=== PATIENT | female | born 1995 | race Caucasian/White ===

== ENCOUNTER → 2021-09-15 10:16 | Outpatient (CLI) | payer OTHER, SELFPAY ==
[2021-09-17 21:56] LABS: AFP Value 52.1 ng/mL (.); Gest Age on Col Date 17.7 weeks (.); Gestational Age Ultrasound (.); Insulin Dep Diabetes No (.); OSBR Risk 1IN 5576 (.); Results Report (.); Test Results *Screen Negative* (.)
== END ==
PROVIDERS: Referring Provider Obstetrics & Gynecology; Visit Provider Obstetrics & Gynecology
DX: Z34.82 Encounter for supervision of other normal pregnancy, second trimester (principal); Z3A.16 16 weeks gestation of pregnancy
CPT/HCPCS: 36415; 82105

== ENCOUNTER → 2021-10-08 07:12 | Outpatient (CLI) | payer OTHER, SELFPAY ==
--- NOTE | 2021-10-08 07:13 | DI.US.S_ITS ---
PROCEDURE: US OB >= 14 WEEKS FETUS INDICATIONS: ANATOMY OUTSIDE/PRIOR DATING DATA: LMP-based estimated date of delivery (ADAM): 02/22/2022. First dating scan (date and location): 09/15/2021 Estimated date of delivery (ADAM) from first dating scan: 02/21/2022. TECHNIQUE: Real-time scanning was performed of the fetus, with image documentation and biometric measurements. Endovaginal scanning: No COMPARISON: [facility], , OB >= 14 WEEKS FETUS, 09/15/2021, 10:10. FINDINGS: General: A single living intrauterine gestation is present. Presentation: Vertex. Placenta: Placental position is posterior , without previa. Amniotic fluid index: 5.2 cm, normal range is 5-24 cm. heart rate: 139 beats per minute. Maternal cervical canal: 5.2 cm long. Normal lower limit is 2.5 cm. biometrics: Biparietal diameter: 46 mm; 20 weeks 0 days Head circumference: 179 mm; 20 weeks 2 days Abdominal circumference: 151 mm; 20 weeks 2 days Femur length: 35 mm; 21 weeks 0 days Clinically estimated gestational age: 20 weeks 4 days Composite gestational age from present scan: 20 weeks 3 days Estimated weight and percentile: 364 g, which is at the 46th percentile for gestational age Anatomic survey: Neuro: Ventricles are non-dilated at less than 10 mm. Cisterna magna is normal at 3-11 mm. Cerebellum is normal in size and morphology. Nuchal skin fold: Normal at less than 6 mm between 14-21 weeks gestational age. Face: Nose and lips, facial profile are normal. Spine: No evidence for spina bifida. Heart: 4-chambered heart is present, with normal ventricular outflow tracts. Diaphragm: Diaphragm is intact. Stomach: Left-sided stomach is present. Kidneys: No hydronephrosis. Normal is less than 5 mm in 2nd trimester, less than 7 mm in 3rd trimester. Cord: 3-vessel cord has orthotopic insertion. Bladder: Normal in size. Extremities: All 4 extremities identified. IMPRESSION: 1. Single living intrauterine gestation. 2. Amniotic fluid index is at lower limits of normal. 3. No anomalies identified. We strive to produce accurate, complete, and clear reports of imaging services. To assist us in improving patient care, this report was composed using standard report templates and voice recognition software. Therefore, it may contain abnormal punctuation, insertions and/or omissions. Occasional wrong-word or sound-alike substitutions may occur. Though we review the report and make efforts to correct it, we do recommend that the report be read carefully in proper context to recognize any text inaccuracies. Dictated by: Uriah Qureshi M.D. on 10/08/2021 at 14:50 Approved by: Uriah Qureshi M.D. on 10/08/2021 at 16:38
== END ==
PROVIDERS: Referring Provider Obstetrics & Gynecology; Visit Provider Obstetrics & Gynecology
DX: Z34.82 Encounter for supervision of other normal pregnancy, second trimester (principal); Z3A.20 20 weeks gestation of pregnancy
CPT/HCPCS: 76811

== ENCOUNTER 2021-10-09 12:30 | Outpatient (CLI) | payer OTHER, SELFPAY ==
--- NOTE | 2021-10-09 18:42 | PM.OBTRLD ---
Visit Information Visit Information Date of evaluation: 10/09/21 Primary OB Provider: Isabella Gonzalez On-call OB Provider: Isabella Gonzalez Reason for Evaluation: Yes rupture of membranes Comments/Additional reasons for admission: Patient is a 26-year-old 2 para 0 at 20-,4/7 weeks gestation who had a 20 week ultrasound this week that showed the amniotic fluid volume at the lower limit of normal. Patient reports that she thinks she has been leaking fluid over the last week. She has to change her underwear at the end of the day. [facility] Medical History (Updated 09/18/21 @ 19:15 by Cary Groves) Acne Chicken pox (~1996) Irritable bowel syndrome (~2003) Missed UTI (urinary tract infection) Vaginitis Surgical History (Updated 09/18/21 @ 19:15 by Cary Groves) Anesthesia History of tonsillectomy (~2012) History of wisdom tooth extraction Family History (Updated 09/18/21 @ 19:15 by Cary Groves) Mother Hypertension Anxiety and depression Father Hypertension Grandfather Cancer Social History marital status: number of children: 0 household members: spouse lives independently: Yes housing: house pets and animals: Yes (cats - cleans litter box) 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 current occupational exposures/hazards: No special angela needs: No seatbelt use: always water heater temp set < 120 deg: Yes working smoke detector in home: Yes fire extinguisher in home: Yes carbon monox detector in home: Yes firearms in home: No do you feel safe at home: Yes Smoking Status: Never smoker second hand exposure: No alcohol intake: former substance use type: does not use, former substance user and marijuana during the past year weight has: remained stable well-balanced diet: daily or most days daily servings fruits/ve-4 caffeine: Yes (1 per day - limit 200mg) Type(s) of exercise: walking and regular exercise Exam Narrative Exam Narrative: Generally: A well-developed, well-nourished female, no acute distress Evaluation Evaluation Baseline heart rate: 140 Non-invasive Membranes Rupture Test: negative Diagnosis, Plan/Disposition Plan/Disposition Plan: Assessment: 26-year-old 2 para 0 at 20-,4/7 weeks gestation Negative AmniSure Amniotic fluid volume at lower limit of normal Plan: Discharged home Follow-up next week as scheduled OB Disposition: home
== END 2021-10-09 13:10 | disposition home or self-care (01) ==
LOC: LABOR 13:15 → OB 10-13 06:49
PROVIDERS: Referring Provider Obstetrics & Gynecology; Visit Provider Obstetrics & Gynecology
DX: Z03.71 Encounter for suspected problem with amniotic cavity and membrane ruled out (principal); Z3A.20 20 weeks gestation of pregnancy
CPT/HCPCS: 59050; 84112; G0378; G0379

== ENCOUNTER → 2021-11-16 11:05 | Outpatient (CLI) | payer OTHER, SELFPAY ==
[2021-11-16 13:36] LABS: Hematocrit 34.4 % (36-46); Hemoglobin 11.7 g/dL (12.0-16.0)
[2021-11-16 14:26] LABS: GTT (PREG) 1 Hour PP 50gm Dose 109 mg/dL (76-139)
== END ==
PROVIDERS: Referring Provider Obstetrics & Gynecology; Visit Provider Obstetrics & Gynecology
DX: Z34.82 Encounter for supervision of other normal pregnancy, second trimester (principal); Z3A.26 26 weeks gestation of pregnancy
CPT/HCPCS: 36415; 82950; 85014; 85018

== ENCOUNTER → 2022-01-15 11:47 | Outpatient (CLI) | payer OTHER, SELFPAY | PROVIDERS: Visit Provider Specialist | DX: Z34.83 Encounter for supervision of other normal pregnancy, third trimester (principal); Z3A.34 34 weeks gestation of pregnancy | CPT/HCPCS: 87086 ==

== ENCOUNTER → 2022-02-04 11:12 | Outpatient (CLI) | payer OTHER, SELFPAY ==
[2022-02-05 13:36] LABS: Strep Grp B PCR NEG for Grp B Strep
== END ==
PROVIDERS: Visit Provider Physician Assistant Medical
DX: Z34.83 Encounter for supervision of other normal pregnancy, third trimester (principal); Z3A.37 37 weeks gestation of pregnancy
CPT/HCPCS: 87653

== ENCOUNTER 2022-02-16 18:05 | Inpatient (IN) | payer OTHER, SELFPAY ==
[2022-02-16 19:52] LABS: Add Manual Diff / Slide Review NO; Basophils Absolute Auto 100 /uL (0-100); Basophils Percent Auto 0.7 % (0-2); Eosinophils Absolute Auto 100 /uL (0-450); Eosinophils Percent Auto 0.8 % (2-4); Hemoglobin 11.4 g/dL (12.0-16.0); Lymphocytes Absolute Auto 1600 /uL (1100-4500); Lymphocytes Percent Auto 17.3 % (25-40); Mean Corpuscular HGB Conc 34.5 % (30-36); Mean Corpuscular Hemoglobin 31.4 PG (26-34); Monocytes Absolute Auto 800 /uL (0-900); Monocytes Percent Auto 8.4 % (3-14); Neutrophils Absolute Auto 6800 /uL (1500-7000); Neutrophils Percent Auto 72.8 % (50-75); Platelet Count 189 X10^3/uL (150-400); Red Blood Cell Count 3.63 X10^6/uL (4.0-5.2); Red Cell Distribution Width 13.8 % (11.6-14.8); White Blood Cell Count 9.4 X10^3/uL (4.5-11.0)
[2022-02-16] MEDS: LACTATED RINGERS 1,000 ML 100 ML IV (20:42)
[2022-02-16] MEDS: miSOPROStoL 25 MCG TABLET VAG (21:00)
[2022-02-16 22:25] LABS: COVID19 -Nasal RAPID Negative (Negative)
[2022-02-17] MEDS: ZOLPIDEM 5 MG TABLET 10 MG PO (01:42)
[2022-02-17] MEDS: miSOPROStoL 25 MCG TABLET VAG ×2 (03:27→07:52)
[2022-02-17] MEDS: ONDANSETRON 4 MG/2 ML INJ IV (07:34)
[2022-02-17] MEDS: LACTATED RINGERS 1,000 ML 1000 ML IV (11:05)
--- NOTE | 2022-02-17 11:38 | P.HPOB_ITS ---
OB HPI Date/Time Date of admission: 02/17/22 Date Patient Seen: 02/17/22 Time Patient Seen: 08:50 History of Present Condition Chief complaint: observation of labor ADAM Calculator Estimated Delivery Date Method Current WG Current Estimate 02/22/22 LMP (Uncertain) 39w 2d Other Estimates 02/25/22 Ultrasound #1 38w 6d Estimated Gestational Age (weeks): 39+2 : 2 Para: 0 care: good care, initiated at week # (6), number of visits (12) and pounds weight gain (35) Dating criteria OB: LMP confirmed by 1st trimester US Ultrasounds: normal 1st trimester US Obstetrical complications: other (low amniotic fluid on anatomic survey, normal LINDSEY at 25,27 and 29 weeks) Medical complications OB: none Indications Indication for induction OB: other (Elective) Preadmission Labs Last OB Lab Results: Blood Type A Positive 02/16/22 19:45 Antibody Screen Negative 02/16/22 19:45 Hematocrit 33.0 % (36-46) L 02/16/22 19:45 Hemoglobin 11.4 g/dL (12.0-16.0) L 02/16/22 19:45 Glucose 1 Hour 109 mg/dL (76-139) 11/16/21 12:14 Group B Streptococcus (PCR) Neg for grp b strep 02/04/22 11:12 -: Chlamydia screen: negative, Gonorrhea screen: negative and Urine: negative Genetic Screens: Cell-free DNA: Normal and Alpha-fetoprotein: Normal External Labs -: HBsAG: negative, HIV: negative, RPR/VDLR: negative, Chlamydia screen: negative, Gonorrhea screen: negative and Urine: negative -: Rubella: immune and Varicella: immune HCAB: negative PAP: Normal Prior (ies) Past Pregnancies Del. Date GA/Weeks Labor Lgth Wt Sex Route Outcome Anesthesia Place Delv Breastfeed Preg Comp Name 03/11/21 13 spontaneous none Delivery Date: 03/11/21 Last Updated by: Pooja Zuniga RJennifer No heart beat at 10 weeks had only grown to7wks Evaluation Evaluation Baseline heart rate: 125 Variability: Moderate (11-25) monitor accelerations: Present Monitor Decelerations: Absent Contraction Frequency (minutes): 5 Uterine Contraction Intensity: Mild Status: Category l Dilation (cm): 2 Effacement (%): 80 station: -1 Position of cervix: mid Consistency: soft PFSH Medical History (Updated 09/18/21 @ 19:15 by Cary Groves) Acne Chicken pox (~1996) Irritable bowel syndrome (~2003) Missed UTI (urinary tract infection) Vaginitis Surgical History (Updated 09/18/21 @ 19:15 by Cary Groves) Anesthesia History of tonsillectomy (~2012) History of wisdom tooth extraction Family History (Updated 09/18/21 @ 19:15 by Cary Groves) Mother Hypertension Anxiety and depression Father Hypertension Grandfather Cancer Social History marital status: number of children: 0 household members: spouse lives independently: Yes housing: house pets and animals: Yes (cats - cleans litter box) education level: college occupational status: employed current occupational exposures/hazards: No special angela needs: No seatbelt use: always water heater temp set < 120 deg: Yes working smoke detector in home: Yes fire extinguisher in home: Yes carbon monox detector in home: Yes firearms in home: No do you feel safe at home: Yes Smoking Status: Never smoker second hand exposure: No alcohol intake: former substance use type: does not use, former substance user and marijuana during the past year weight has: remained stable well-balanced diet: daily or most days daily servings fruits/ve-4 caffeine: Yes (1 per day - limit 200mg) Type(s) of exercise: walking and regular exercise Meds Home Medications and Allergies Home Medications Medication Instructions Recorded Confirmed Type prenat.vits,tequila,pee-caxj-ttaic 1 tab PO DAILY 09/07/21 02/16/22 History omeprazole 40 mg capsule,delayed 40 mg PO BID Acid reflux #60 caps 01/15/22 02/16/22 Rx release Allergies Allergy/AdvReac Type Severity Reaction Status Date / Time house dust Allergy Severe shortness Verified 02/16/22 13:03 of breath pollen extracts Allergy Severe shortness Verified 02/16/22 13:03 of breathe OB Exam Narrative Exam Narrative: Generally: Patient walking around in room, no acute distress Lungs: Clear to auscultation bilaterally Cardiovascular: Regular rate and rhythm Fundal height: 39 cm Estimated weight: 7-1/2 lb Extremities: Trace edema, 1+ DTRs Objective Labs Result Diagrams: 02/16/22 19:45 Labs: Laboratory Results - last 24 hr 02/16/22 02/16/22 02/16/22 19:45 19:45 20:05 WBC 9.4 RBC 3.63 L Hgb 11.4 L Hct 33.0 L MCV 91.0 MCH 31.4 MCHC 34.5 RDW 13.8 Plt Count 189 Neut % (Auto) 72.8 Lymph % (Auto) 17.3 L [place] % (Auto) 8.4 Eos % (Auto) 0.8 L Baso % (Auto) 0.7 Neut # (Auto) 6800 Lymph # (Auto) 1600 [place] # (Auto) 800 Eos # (Auto) 100 Baso # (Auto) 100 SARS-CoV-2 (PCR) Negative Blood Type A Positive Antibody Screen Negative Assessment and Plan Assessment and Plan Assessment and Plan narrative: Assessment: 26-year-old 2 para 0 at 39 +2 weeks gestation status post 3 doses of Cytotec for cervical ripening GBS negative Plan: Recheck at 11:30 a.m. and decide on Pitocin verses repeat Cytotec Epidural as necessary Expected management to spontaneous vaginal delivery Time Spent with Patient Total time spent with greater than 50% in coordination of care (as documented) at patient's floor/unit and/or counseling patient:: 15-24 minutes
--- NOTE | 2022-02-17 11:50 | PM.OBPNLAB ---
Date/Time Date Patient Seen: 02/17/22 Time Patient Seen: 11:50 Pain Control Comments: Patient breathing through contractions Called to see patient for bright red vaginal bleeding upon returning from the bathroom Pelvic Exam Dilation (cm): 2 Effacement (%): 100 station: -3 Amniotic membrane status: Intact Contractions Contractions on admission: none Monitor mode: External Contraction frequency (min): 3 Contraction duration (min): 1 Contraction pattern: Regular Contraction intensity: Moderate Status status: Category l Heart Rate Baseline: 125 Monitor Accelerations: Present Monitor Decelerations: Absent Monitor Variability: Moderate Assessment and Plan Assessment: induction ongoing Comments: Epidural placement in case we need to go to quickly Peguero catheter after epidural placed Consider artificial rupture of membranes once comfortable
[2022-02-17] MEDS: LACTATED RINGERS 1,000 ML 100 ML IV ×2 (14:08→19:50)
[2022-02-17] MEDS: FENT 2MCG/ML BUPIV 0.125% EPI 200 MCG/100 ML PLAST..BAG 10 MCG EPIDURAL ×2 (14:10→20:34)
[2022-02-17] MEDS: CALCIUM CARBONATE 500 MG TAB 1000 MG PO (14:14)
[2022-02-17] MEDS: OXYTOCIN PREMIX 30 UNIT/500 ML PLAST..BAG IV (14:24)
--- NOTE | 2022-02-17 14:58 | PM.OBPNLAB ---
Date/Time Date Patient Seen: 02/17/22 Time Patient Seen: 14:30 Pain Control Pain control: epidural Comments: Patient feeling pressure Pelvic Exam Dilation (cm): 5 Effacement (%): 100 station: -2 Amniotic membrane status: Ruptured (Spontaneous, copious clear amniotic fluid) Contractions Contractions on admission: none Monitor mode: External Contraction frequency (min): 5 Contraction duration (min): 1 Contraction pattern: Regular Contraction intensity: Moderate Status status: Category l Heart Rate Baseline: 130 Monitor Accelerations: Present Monitor Decelerations: Absent Monitor Variability: Moderate Assessment and Plan Assessment: active labor and induction ongoing Comments: Begin Pitocin augmentation Side to side with peanut ball
--- NOTE | 2022-02-17 22:59 | PM.OBPRVD ---
Events: Labor Induction Labor & Delivery Delivery date: 02/17/22 Intrapartal Events: Intolerance (late decelerations) Cervical ripening method: per misoprostal protocol Delivery augmentation: rupture of membranes and pitocin Delivery monitor: external FHT and external uterine Route of delivery: vacuum extraction Indication for instrumentation: nonreassuring FHR tracing Episiotomy description: None L&D Laceration Description: Perineal - 2nd Degree, Vaginal - 2nd Degree and Labial (Right) Delivery repair: vicryl and chromic Quantitative Blood Loss: 200 Anesthesia Type: Epidural Complications: None Narrative: Patient complete and pushed for 2-1/2 hours. A vacuum was placed due to late decelerations. With 1 pull with a contraction, the vertex delivered in the PATRICIA presentation over an intact perineum at 10:20 p.m.. No nuchal cord. The remainder of the body delivered without difficulty and was placed on mom's abdomen. Pitocin was given in the IV fluids. After the cord stopped pulsing, the cord was double clamped and cut. The placenta delivered intact with a three-vessel cord at 10:28 p.m.. The fundus was massaged to firm. A right labial laceration was repaired with 3-0 chromic in the usual fashion. A second-degree vaginal/perineal laceration was repaired with 2 0 Vicryl and 3-0 chromic in the usual fashion. Hemostasis was achieved. QBL 200 cc. Apgars 9 at 1 minute and 9 at 5 minutes. . Epidural analgesia. Mom and infant stable to recovery. [place] Baby 1: Infant gender: Female Presentation: vertex Position: Left Occiput Anterior Placenta delivery description: Spontaneous Cord Vessel Description: 3 Vessels and Clamped/Cut score (1 min): 9 score (5 min): 9 weight: 6 lb 9 oz Plan for aftercare: Routine care
[2022-02-18] MEDS: IBUPROFEN 600 MG TABLET PO ×2 (05:10→15:34)
[2022-02-18] MEDS: DERMOPLAST SPRAY 20% 60 ML 1 SPRAY TOP (05:10)
[2022-02-18] MEDS: ACETAMINOPHEN 325 MG TABLET 650 MG PO ×2 (05:10→15:34)
[2022-02-18 06:32] LABS: Hematocrit 28.5 % (36-46); Hemoglobin 9.9 g/dL (12.0-16.0)
[2022-02-18] MEDS: LANOLIN OINT 7 GM 1 APPLIC TOP (06:44)
[2022-02-18] MEDS: DOCUSATE 100 MG CAPSULE PO (09:13)
[2022-02-18 15:34] VITALS: TEMP 36.9
--- NOTE | 2022-02-24 12:54 | P.DS_ITS ---
Discharge Providers Provider Date of admission: 02/16/22 18:05 Discharge Date: 02/18/22 Primary care physician: Doctor Tennille MD Discharge provider: Isabella Gonzalez MD Summary Hospital Course Date Patient Seen: 02/18/22 Time Patient Seen: 14:00 Diagnoses: 39-2/7 weeks gestation Cervical ripening Pitocin induction of labor Epidural analgesia Vacuum assisted vaginal delivery Second-degree vaginal/perineal laceration and repair Hospital Course: Patient is a 26-year-old 2 para 1 who presented on February 16, 2022 for cervical ripening. She received 3 doses of cervical ripening. She received an epidural for pain management. She progressed to complete dilation on the evening of February 17, 2022. She had a vacuum assisted vaginal delivery due to recurrent late decelerations. She had a second-degree vaginal/perineal laceration which was repaired. Her course was unremarkable. She was discharged home on day # 1. Peripartum Data Delivery Method: Assisted Delivery (Vacuum assist) Laceration Description: Perineal - 2nd Degree and Vaginal - 2nd Degree Episiotomy description: None Procedures: Cervical ripening Pitocin induction of labor Artificial rupture of membranes Epidural analgesia Vacuum assisted vaginal delivery Second-degree perineal/vaginal laceration repair complications: none [place] 1: Gender: Female Disposition of : home Status at Discharge Cognitive/behavioral status at discharge: oriented Functional status at discharge: independent ambulation Overall status at discharge: patient is progressing back to baseline Time Spent with Patient Time attestation: Total time spent providing and/or coordinating discharge services: Time spent: Less than 30 minutes Objective Labs Result Diagrams: 02/18/22 06:19 Exam Narrative Exam Narrative: Generally: Patient walking around in room, no acute distress Fundus: Firm at U -1 Extremities: Trace edema, negative Homans Discharge Plan Discharge Plan Patient Disposition: Home Provider Discharge Comment: Call with fever, chills, or bleeding vaginally more than a pad in an hour Ibuprofen 600 mg every 6 hours as needed for cramping Discharge orders & Medications Prescriptions: Continued prenat.vits,tequila,[id number] Tablet 1 tab PO DAILY Discontinued omeprazole 40 mg capsule,delayed release(DR/EC) 40 mg PO BID Qty: 60 0RF Follow up/Referrals: Isabella Gonzalez MD [Physician] - (Please follow up w/ Dr. Gonzalez on Mar.30 @ 9:30am, with a 9:15am check in Your appt for 02/25/22 has been canceled. If you have any questions/concerns or need to reschedule please call [phone]) Diet/Activity/Treatments Diet: Regular Activity: Nothing in the vagina for 6 weeks Skin/Wound/Dressing Care Report to your healthcare provider any signs of infection, such as:: chills, fever, increased pain and unusual drainage Visit Report/Discharge Packet Instructions: DI for Labor and Delivery, Vaginal , DI for and Nipple Soreness Stand Alone Forms: Discharge: Care Discharge Data Primary Care Provider: Miscellaneous,Doctor
== END 2022-02-18 18:50 | disposition home or self-care (01) | DRG 807 ==
PROVIDERS: Admitting Provider Obstetrics & Gynecology; Referring Provider Obstetrics & Gynecology; Visit Provider Obstetrics & Gynecology
DX: O76 Abnormality in fetal heart rate and rhythm complicating labor and delivery (principal); Z37.0 Single live birth; O70.1 Second degree perineal laceration during delivery; Z3A.39 39 weeks gestation of pregnancy; Z20.822 Contact with and (suspected) exposure to COVID-19
CPT/HCPCS: 36415; 59050; 59400; 85014; 85018; 85025; 86850; 86900; 86901; 87635; C9803; G0379; J2405; J2590

== ENCOUNTER → 2022-03-23 13:44 | Outpatient (CLI) | payer OTHER, SELFPAY | PROVIDERS: PCP Nurse Practitioner Family; Referring Provider Nurse Practitioner Family; Visit Provider Nurse Practitioner Family ==